=== PATIENT | female | born 1945 | race African-American/Black ===

== ENCOUNTER → 2017-04-10 | Outpatient (CLI) | payer OTHER ==
[2015-09-06 15:41] VITALS: BP 156/80
[2017-04-10 15:32] LABS: BASOPHILS # (AUTO) 0.1 X10^3/uL (0.0-0.1); BASOPHILS % (AUTO) 0.9 % (0.2-1.0); EOSINOPHILS # (AUTO) 0.3 x10^3/uL (0.0-0.2); EOSINOPHILS % (AUTO) 3.8 % (0.9-2.9); HEMATOCRIT 36.5 % (36.0-47.0); HEMOGLOBIN 12.3 g/dL (12.0-16.0); LYMPHOCYTES % (AUTO) 30.1 % (21.0-51.0); MEAN CORPUSCULAR HEMOGLOBIN 29.7 pg (27.0-34.0); MEAN CORPUSCULAR HGB CONC 33.6 g/dL (33.0-35.0); MEAN CORPUSCULAR VOLUME 88.4 fL (80.0-100.0); MEAN PLATELET VOLUME 9.6 fL (7.4-11.0); MONOCYTES # (AUTO) 0.6 x10^3/uL (0.3-0.8); MONOCYTES % (AUTO) 8.3 % (0.0-13.0); NEUTROPHILS # (AUTO) 3.9 x10^3/uL (2.2-4.8); NEUTROPHILS % (AUTO) 56.9 % (42.0-75.0); PLATELET COUNT 176 X10^3/uL (150.0-450.0); RED BLOOD COUNT 4.13 X10^6/uL (3.5-5.4); RED CELL DISTRIBUTION WIDTH 14.2 % (11.6-16.5); WHITE BLOOD COUNT 6.8 X10^3/uL (3.6-10.0)
[2017-04-10 15:52] LABS: ALANINE AMINOTRANSFERASE 35 Units/L (12-78); ALBUMIN 3.5 g/dL (3.4-5.0); ALKALINE PHOSPHATASE 71 Units/L (46-116); ASPARTATE AMINO TRANSFERASE 26 Units/L (15-37); BLOOD UREA NITROGEN 18 mg/dL (7-18); CALCIUM 8.9 mg/dL (8.5-10.1); CARBON DIOXIDE 28.5 mmol/L (21-32); CHLORIDE 105 mmol/L (98-107); COR NA(FOR HYPERGLY) 141 mmol/L (136-145); GLUCOSE 123 mg/dL (65-99); SODIUM 140 mmol/L (136-145); T4 (THYROXINE) 6.5 ug/dL (4.7-13.3); TOTAL PROTEIN 7.7 g/dL (6.4-8.2); TSH (3RD GENERATION) 1.569 uIU/mL (0.358-3.74); eGFR BLACK RACES 57 (>60); eGFR NON BLACK RACES 47 (>60)
== END ==
LOC: LAB 15:06
PROVIDERS: ATTEND Internal Medicine
DX: I10 Essential (primary) hypertension (principal); E11.9 Type 2 diabetes mellitus without complications
CPT/HCPCS: 36415; 80053; 84436; 84443; 85025

== ENCOUNTER → 2017-07-30 | Outpatient (CLI) | payer OTHER ==
[2015-09-06 15:41] VITALS: BP 156/80
--- NOTE | 2017-08-03 14:52 | MG ---
HISTORY: SCREENING Comparison: Multiple mammograms dating back to June 19, 2015. FINDINGS: Bilateral CC and MLO projections of the right and left breast were obtained. Scattered fibroglandula r tissue is seen to be present. No significant architectural distortion, mass or clustered microcalc ifications can be observed to suggest malignancy. No skin thickening or nipple retraction is appreci ated. No pathological lymphadenopathy can be identified. Benign-appearing calcifications scattered throughout the right and left breasts are observed. IMPRESSION: NO RADIOGRAPHIC EVIDENCE OF MALIGNANCY. ACR CATEGORY: 2 - benign findings. FOLLOW-UP EXAM 1 YEAR. Diagnostic CAD was utilized and reviewed. * 0 (ZERO) - ASSESSMENT INCOMPLETE; ADDITIONAL IMAGING IS NEEDED. * 1/1 (ONE) - NEGATIVE. * 2/II (TWO) - BENIGN FINDINGS. * 3/III (THREE) - PROBABLY BENIGN FINDING; SHORT INTERVAL FOLLOW-UP SUGGESTED. * 4/IV (FOUR) - SUSPICIOUS ABNORMALITY; BIOPSY SHOULD BE CONSIDERED. * 5/V - HIGHLY SUSPICIOUS OF MALIGNANCY; BIOPSY SHOULD BE PERFORMED. A NEGATIVE X-RAY REPORT SHOULD NOT DELAY BIOPSY IF A DOMINANT OR CLINICALLY SUSPICIOUS MASS IS PRESENT; 4 TO 8 PERCENT OF CANCERS ARE NOT IDENTIFIED BY X-RAY. A NEGA TIVE REPORT MAY REINFORCE THE CLINICAL IMPRESSION. ADENOSIS AND DENSE BREASTS MAY OBSCURE AN UNDERLY ING NEOPLASM. Reported By:
== END ==
LOC: RAD 10:11
PROVIDERS: ATTEND Internal Medicine
DX: Z12.31 Encounter for screening mammogram for malignant neoplasm of breast (principal)
CPT/HCPCS: 77067

== ENCOUNTER 2017-08-20 07:26 | Day surgery (SDC) | payer OTHER ==
[2017-08-20] MEDS ORDERED: D5 LR 1000 ML 1,000 ML IV ONE (07:33)
[2017-08-20] MEDS ORDERED: DIPRIVAN VIAL 20 ML ONE (09:19)
[2017-08-20 09:48] VITALS: BP 148/86
== END 2017-08-20 09:48 | disposition home or self-care (01) ==
LOC: SURG1 07:26
PROVIDERS: ATTEND Internal Medicine Gastroenterology
PROC: 0DB68ZX Excision of Stomach, Via Natural or Artificial Opening Endoscopic, Diagnostic (ICD-10-PCS; principal; 2017-08-20 09:30)
PROC: 0DJ08ZZ Inspection of Upper Intestinal Tract, Via Natural or Artificial Opening Endoscopic (ICD-10-PCS; principal; 2017-08-20 09:30)
DX: R13.19 Other dysphagia (principal); R10.13 Epigastric pain; K21.9 Gastro-esophageal reflux disease without esophagitis; K22.2 Esophageal obstruction; K44.9 Diaphragmatic hernia without obstruction or gangrene; K29.60 Other gastritis without bleeding
CPT/HCPCS: 99100; A4217; J3490; J7120

== ENCOUNTER 2017-09-28 22:20 | Emergency (ER) | payer OTHER ==
[2017-09-28 22:29] VITALS: BMI 36.8
[2017-09-28] MEDS ORDERED: NIFEDIPINE CAP 10 MG PO ONE (22:37)
[2017-09-28] MEDS ORDERED: NIFEDIPINE CAP 10 MG ONE (22:38)
--- NOTE | 2017-09-28 22:59 | RAD ---
Left shoulder three views Indication: Pain after fall. Findings: There is moderate AC joint and mild to moderate glenohumeral degenerative change without co rtical lucency or malalignment seen. Impression: Degenerative change of the left shoulder without acute displaced fracture Reported By:
--- NOTE | 2017-09-28 23:06 | CT ---
CT of the head without contrast Indication: Trauma with head pain. Findings : there is no intracranial hemorrhage, mass effect or evidence of acute ischemia. There is m ild diffuse atrophy. The ventricular system is within normal limits. The globes, sella and posterior fossa are unremarkable. The visualized paranasal sinuses are clear. No fracture seen. Conclusion: No acute intracranial trauma. Reported By:
[2017-09-28 23:22] VITALS: BP 128/65
[2017-09-28] MEDS ORDERED: TORADOL TAB PO ONE ×2 (23:51→23:52)
--- NOTE | 2017-09-28 23:56 | DR.GENAD ---
HPI - PCP Primary Care Physician: JENNIFER - HPI Comment HPI Comment: BP ELEVATED ALSO. GOING ON FOR SOME TIME BUT WORSE TODAY. TAKES BP MED. NO LOC AFTER FALL. - Complaint/Symptoms Chief Complaint Doctors Comments: FEEL THURSDAY. RT EAR PAIN, LT SHOULDER PAIN, HEADACHE AND DIZZINESS SINCE. Chief Complaint:: PT STATES" I FELL DOWN ON THE FLOOR THURSDAY NIGHT AND MY HEAD HIT THE FLOOR FIRST THEN MY ENTIRE BODY. I AM FEEL VERY DIZZY IN MY HEAD AND HAVING PAINS. MY LT SHOULDER HURT,AND MY RT EAR. I AM VERY WEAK IN BOTH LEGS" - Nurses notes reviewed Nurses Notes Review: Yes - Source History Provided: Patient - Mode of Arrival Mode of Arrival: Ambulatory - Timing Onset of Chief Complaint: 10/04/17 Came on: Suddenly - Duration Duration: Days - Severity Severity: Moderate PMH - PMH Past Medical History: Yes Past Medical History: Diabetes, Hypertension Past Surgical History: Yes Surgical History: [employer] Surgery Past Surgical History Comment: SINUS - Family History History of Family Medical Conditions: No - Social History Does any household member use tobacco: No Alcohol Use: None Do you use any recreational Drugs:: No Lives With: Family Lives Where: Home - infectious screening In the last 2 months have you had wt loss of >10#?: NO Have you had fever, night sweats or hemotysis?: No Have you traveled outside the country in the last 6 months?: No Isolation: Standard ROS - Review of Systems Constitutional: No Symptoms Reported Eyes: No Symptoms Reported ENTM: Ear Pain (RT EAR.) Respiratoy: No Symptoms Reported Cardiovascular: No Symptoms Reported Gastrointestinal/Abdominal: No Symptoms Reported Genitourinary: No Symptoms Reported Neurological: Headache, Dizziness Musculoskeletal: Left, Shoulder (PAIN,) Integumentary: No Symptoms Reported Hematologic/Lymphatic: No Symptoms Reported Endocrine: No Symptoms Reported All Other Systems: Reviewed and Negative PE - Vital Signs Vitals: Temperature 98.6 F Pulse Rate [Right Brachial] 70 Pulse Rate 70 Respiratory Rate 18 Blood Pressure [Right Arm] 128/65 Blood Pressure 210/96 O2 Sat by Pulse Oximetry 100 - General Limitations: No Limitations General Appearance: Alert - Head Head Exam: Normal Inspection - Eyes Eye exam: Normal Appearance - ENT ENT Exam: Normal External Ear Exam External Ear Exam: Normal External Inspection TM/Canal Exam: Bilateral Normal Nose Exam: Normal Nose Exam Mouth Exam: Normal Inspection Throat Exam: Normal Inspection - Neck Neck Exam: Trachea Midline - Chest Chest Inspection: Symmetric Chest Wall Rise - Respiratory Respiratory Exam: Normal Lung Sounds Bilat Respiratory Exam: Bilateral Clear to Auscultation - Cardiovascular Cardiovascular Exam: Regular Rate, Normal Rhythm, Normal Heart Sounds - Abdominal Exam Abdominal Exam: Normal Inspection - Extremities Extremities Exam: Tenderness (LT SHOULDER TENDER, ROM DECREASE. PULSES INTACT.) - Back Back Exam: Normal Inspection - Neurologic Neurological Exam: Alert, Oriented X3 - Psychiatric Psychiatric Exam: Normal Affect, Normal Mood - Skin Skin Exam: Normal Color MDM - Differential Diagnosis Differential Diagnosis: HTN, FRACTURE LT SHOULDER AND SKULL, SPRAIN LT SHOULDER , BRAIN BLEED Course - Treatment Treatment: REPORT DISCUSS WITH PATIENT. KAMILA, IN ED. BP IMPROVED. - Education/Counseling Education/Counseling: Patient, Education Educated On: Treatment, Diagnosis, Needs for Follow Up ROR - XRAY XRAY Interpreted by: Radiologist XRAY Findings: REPORT DISCUSS WITH PATIENT. - Diagnosis Discharge Problem: Ear ache Hypertension Qualifiers: Hypertension type: essential hypertension Qualified Code(s): I10 - Essential ( primary) hypertension Head trauma Qualifiers: Encounter type: initial encounter Qualified Code(s): S09.90XA - Unspecified injury of head, initial encounter Shoulder sprain Qualifiers: Encounter type: initial encounter Shoulder sprain type: unspecified sprain Laterality: left Qualified Code(s): S43.402A - Unspecified sprain of left shoulder joint, initial encounter - Discharge Plan Disposition: 01 HOME, SELF-CARE Condition: Stable Prescriptions: Clonidine HCl 0.1 mg PO DAILY PRN #30 tablet PRN Reason: Ketorolac Tromethamine [Toradol Tab] 10 mg PO Q8H PRN #20 tab PRN Reason: Pain - Follow ups/Referrals Follow ups/Referrals: Evangelista RODRIGUEZ [Primary Care Provider] - 3 days JULISA WOODSON [REFERRING] - 3 days - Instructions Instructions: Shoulder Sprain, Head Injury, Adult, [id number], Hypertension, [id number], Earache Additional Instructions: RETURN TO ED IF WORSE.
== END 2017-09-29 00:06 | disposition home or self-care (01) ==
LOC: ER 22:46
DX: S09.8XXA Other specified injuries of head, initial encounter (principal); S43.402A Unspecified sprain of left shoulder joint, initial encounter; H92.01 Otalgia, right ear; I10 Essential (primary) hypertension; W19.XXXA Unspecified fall, initial encounter; Y92.9 Unspecified place or not applicable
CPT/HCPCS: 70450; 73030; 99282; 99283